=== PATIENT | female | born 1975 | race Caucasian/White ===

== ENCOUNTER 2017-05-11 18:36 | Emergency (ER) | payer BC ==
[2017-05-11] MEDS ORDERED: MORPHINE SULFATE 5 MG/ML PFS IVP ONE (18:42)
[2017-05-11] MEDS ORDERED: ONDANSETRON HCL IV 4 MG/2 ML VIAL IVP ONE (18:42)
[2017-05-11] MEDS ORDERED: 0.9 % SODIUM CHLORIDE 1000ML 1,000 ML IV SCH (18:45)
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
[2017-05-11] MEDS ORDERED: SILVER SULFADIAZINE 25 GM CREAM TOP ONE (20:13)
== END 2017-05-11 21:00 | disposition home or self-care (01) ==
LOC: ER 18:36
DX: T23.241A Burn of second degree of multiple right fingers (nail), including thumb, initial encounter (principal); T23.251A Burn of second degree of right palm, initial encounter; T20.19XA Burn of first degree of multiple sites of head, face, and neck, initial encounter; X03.0XXA Exposure to flames in controlled fire, not in building or structure, initial encounter; Y92.007 Garden or yard of unspecified non-institutional (private) residence as the place of occurrence of the external cause
CPT/HCPCS: 16020; 99284 ×2; 96374; 96375; J2405; J2270; J7030